=== PATIENT | female | born 1970 | race Caucasian/White ===

== ENCOUNTER 2019-08-02 14:48 | Emergency (ER) | payer OTHER ==
[2019-08-02 15:17] VITALS: BP 148/70; PULSE 110; TEMP 97.7; BMI 22.4
--- NOTE | 2019-08-02 15:17 | PDOC ---
Rapid Medical Evaluation Time Seen by Provider: 08/02/19 15:15 Medical Evaluation: 08/02/19 15:15 This patient had brief-in person evaluation in triage cc:abdominal pain HPI: patient sent to ed from doctor's office for chest xray and ct as per patient, abdominal pain, vomiting and diarrhea. PE:NAD unlabored breathing, non tender abdomen orders:chest xray and abd/pelvic ct This patient will proceed to main ed for further evaluation Discharge Disposition - Diagnosis Abdominal pain - Referrals - Patient Instructions - Post Discharge Activity
[2019-08-02 17:06] LABS: BASO % 0.3 % (0-2.0); EOS % 0.2 % (0-4.5); HEMATOCRIT 43.7 % (32.4-45.2); HEMOGLOBIN 14.6 GM/dL (10.7-15.3); LYMPH % 35.8 % (8-40); MCH 27.9 pg (25.7-33.7); MCHC 33.3 g/dl (32.0-36.0); MEAN CELL VOLUME 83.7 fl (80-96); MEAN PLT VOLUME 9.7 fl (7.5-11.1); MONO % 10.6 % (3.8-10.2); NEUT % 53.1 % (42.8-82.8); PLATELET COUNT 196 K/MM3 (134-434); RBC 5.22 M/mm3 (3.60-5.2); RDW 13.2 % (11.6-15.6); WHITE BLOOD COUNT 6.7 K/mm3 (4.0-10.0)
[2019-08-02 17:10] LABS: URINE APPEARANCE CLEAR; URINE BILIRUBIN NEGATIVE (NEGATIVE); URINE COLOR YELLOW; URINE GLUCOSE (UA) NEGATIVE (NEGATIVE); URINE KETONE NEGATIVE (NEGATIVE); URINE LEUK ESTERASE NEGATIVE (NEGATIVE); URINE NITRITE NEGATIVE (NEGATIVE); URINE PROTEIN NEGATIVE (NEGATIVE); URINE UROBILINOGEN 0.2 mg/dL (0.2-1.0)
[2019-08-02 17:32] LABS: ALBUMIN 3.2 g/dl (3.4-5.0); BILIRUBIN,TOTAL 0.4 mg/dL (0.2-1); BLOOD UREA NITROGEN 15.5 mg/dL (7-18); CREATININE 0.5 mg/dL (0.55-1.3); POTASSIUM 3.9 mmol/L (3.5-5.1); TOT PROT 6.6 g/dl (6.4-8.2)
--- NOTE | 2019-08-02 18:02 | PDOC ---
History of Present Illness - General Chief Complaint: Pain Stated Complaint: SENT BY PCP/ABD PAIN Time Seen by Provider: 08/02/19 15:15 History Source: Patient Exam Limitations: No Limitations - History of Present Illness Travel History: No Initial Comments: 08/02/19 18:14 48-year-old female sent in by Dr. Marinelli for evaluation of generalized abdominal pain along with a cough. Patient was sent to have an abdominal CT along with chest x-ray to rule out pneumonia versus colonic involvement. Patient denies fever, chills, headache, or diarrhea, change in urine pattern but states did lose approximately 10 pounds over the past 1 to 2 months. Timing/Duration: reports: intermittent Quality: reports: mild Abdominal Pain Onset Location: reports: generalized abdomen Pain Radiation: reports: no radiation Activities at Onset: reports: none Alleviating Factors: improves with: None Past History - Travel Traveled outside of the country in the last 30 days: No Close contact w/someone who was outside of country & ill: No - Past Medical History Allergies/Adverse Reactions: Allergies Allergy/AdvReac Type Severity Reaction Status Date / Time No Known Allergies Allergy Verified 08/02/19 15:18 Home Medications: Ambulatory Orders NK [No Known Home Medication] 08/02/19 COPD: No Kidney Stones: (POLYCYSTIC KIDNEY) - Surgical History Abdominal Surgery: (ECTOPIC) - Immunization History Immunization Up to Date: Yes - Psycho Social/Smoking Cessation Hx Smoking History: Current every day smoker Have you smoked in the past 12 months: Yes Information on smoking cessation initiated: Yes Hx Alcohol Use: No Drug/Substance Use Hx: No Patient Lives Alone: No Lives with/in: spouse/SO Review of Systems - Review of Systems Able to Perform ROS?: Yes Is the patient limited Faroese proficient: No Constitutional: Yes: Weakness, Unintentional Wgt. Loss HEENTM: No: Symptoms Reported Respiratory: Yes: Cough Cardiac (ROS): No: Symptoms Reported ABD/GI: Yes: Abdominal cramping : No: Symptoms Reported Musculoskeletal: No: Symptoms Reported Integumentary: No: Symptoms Reported Neurological: No: Symptoms reported *Physical Exam - Vital Signs Last Vital Signs Temp Pulse Resp BP Pulse Ox 97.7 F 110 H 18 148/70 99 08/02/19 15:12 08/02/19 15:12 08/02/19 15:12 08/02/19 15:12 08/02/19 15:12 - Physical Exam General Appearance: Yes: Nourished, Appropriately Dressed. No: Apparent Distress HEENT: negative: Pale Conjunctivae Neck: positive: Supple Respiratory/Chest: positive: Lungs Clear, Normal Breath Sounds. negative: Respiratory Distress, Accessory Muscle Use Cardiovascular: positive: Regular Rhythm, Tachycardia. negative: Murmur Gastrointestinal/Abdominal: positive: Normal Bowel Sounds, Soft. negative: Distended, Guarding, Rebound, Tenderness Extremity: positive: Normal Inspection Integumentary: positive: Normal Color, Warm, Moist Neurologic: positive: Motor Strength 5/5 (Ambulatory) ED Treatment Course - LABORATORY CBC & Chemistry Diagram: 08/02/19 16:35 08/02/19 16:35 - ADDITIONAL ORDERS Additional order review: Laboratory Results 08/02/19 08/02/19 16:35 16:35 Sodium 141 Potassium 3.9 Chloride 110 H Carbon Dioxide 23 Anion Gap 8 BUN 15.5 Creatinine 0.5 L Est GFR (CKD-EPI)AfAm 131.72 Est GFR (CKD-EPI)NonAf 113.65 Random Glucose 98 Calcium 9.0 Total Bilirubin 0.4 AST 47 H ALT 51 Alkaline Phosphatase 119 H Total Protein 6.6 Albumin 3.2 L Lipase 88 Urine Color Yellow Urine Appearance Clear Urine pH 5.0 Ur Specific [place] 1.018 Urine Protein Negative Urine Glucose (UA) Negative Urine Ketones Negative Urine Blood Negative Urine Nitrite Negative Urine Bilirubin Negative Urine Urobilinogen 0.2 Ur Leukocyte Esterase Negative 08/02/19 16:35 RBC 5.22 H MCV 83.7 MCHC 33.3 RDW 13.2 MPV 9.7 Neutrophils % 53.1 Lymphocytes % 35.8 Monocytes % 10.6 H Eosinophils % 0.2 Basophils % 0.3 Medical Decision Making - Medical Decision Making 08/02/19 17:15 chief complaint:Sent here for evaluation of cough and abdominal pain along with weight loss over the past month. Patient currently on flagyl. Patient has no other complaints at this time. Patient has history of polycystic kidneys Exam: Patient with normal physical exam except for mildly elevated heart rate of 110. Plan: Labs, urine, chest x-ray and abdominal CT ordered 08/02/19 18:24 Laboratory Tests 08/02/19 08/02/19 08/02/19 16:35 16:35 16:35 WBC 6.7 Hgb 14.6 Hct 43.7 Absolute Neuts (auto) 3.6 Neutrophils % 53.1 Monocytes % 10.6 H Eosinophils % 0.2 Basophils % 0.3 Nucleated RBC % 0 Sodium 141 Potassium 3.9 Chloride 110 H Carbon Dioxide 23 Anion Gap 8 BUN 15.5 Creatinine 0.5 L Random Glucose 98 Calcium 9.0 Total Bilirubin 0.4 AST 47 H ALT 51 Alkaline Phosphatase 119 H Total Protein 6.6 Albumin 3.2 L Lipase 88 Urine Glucose (UA) Negative Urine Ketones Negative Urine Blood Negative Urine Nitrite Negative Urine Bilirubin Negative Ur Leukocyte Esterase Negative Chest x-ray shows COPD. CT shows findings consistent with adult polycystic kidney disease including multiple renal and hepatic cysts. Otherwise normal abdominal CT. Case discussed with Dr. Vickey Marinelli and tried contacting him for update. will discharge patient home Discharge - Discharge Information Problems reviewed: Yes Clinical Impression/Diagnosis: Abdominal pain Condition: Improved Disposition: HOME - Follow up/Referral Referrals: Vickey Marinelli MD [Primary Care Provider] - Bharathi Paz MD [Staff Physician] - - Patient Discharge Instructions Patient Printed Discharge Instructions: DI for Abdominal Pain-Adult Additional Instructions: Please follow-up with Dr. marinelli and consider following up with the flipping machine operator as I have given you on your discharge - Post Discharge Activity Work/Back to School Note: Back to Work
== END 2019-08-02 18:41 | disposition home or self-care (01) ==
LOC: JER 14:48
DX: R10.9 Unspecified abdominal pain (principal); N28.1 Cyst of kidney, acquired; F17.210 Nicotine dependence, cigarettes, uncomplicated
CPT/HCPCS: 36415; 71046-TC-FY; 74176-TC; 80053; 81003; 83690; 85025; 87086; 99282-25

== ENCOUNTER 2021-02-05 13:23 | Emergency (ER) | payer OTHER ==
[2021-02-05 13:56] VITALS: TEMP 97.2; BMI 25.0
[2021-02-05] MEDS ORDERED: SODIUM CHLORIDE 0.9% 500 ML INFUS.BAG IV ONE ×2 (15:24→18:14)
[2021-02-05] MEDS ORDERED: ACETAMINOPHEN 1000 MG/100 ML VIAL (NON FORMULARY) IVPB ONE (15:24)
[2021-02-05] MEDS ORDERED: ACETAMINOPHEN INJECTION 100 ML IVPB ONE (15:56)
[2021-02-05 16:44] LABS: BASO % 0.2 % (0-2.0); HEMATOCRIT 35.4 % (32.4-45.2); LYMPH % 16.6 % (8-40); MCH 27.6 pg (25.7-33.7); MCHC 34.1 g/dl (32.0-36.0); MEAN PLT VOLUME 9.4 fl (7.5-11.1); MONO % 9.3 % (3.8-10.2); NEUT % 73.9 % (42.8-82.8); PLATELET COUNT 231 10^3/uL (134-434); RBC 4.36 M/mm3 (3.60-5.2); WHITE BLOOD COUNT 13.4 K/mm3 (4.0-10.0)
[2021-02-05 17:04] LABS: CHLORIDE 104 mmol/L (98-107); SODIUM 137 mmol/L (136-145)
[2021-02-05 17:05] LABS: ALBUMIN 3.1 g/dl (3.4-5.0); BLOOD UREA NITROGEN 15.6 mg/dL (7-18)
[2021-02-05 17:06] LABS: ANION GAP 9 MMOL/L (8-16); CO2 25 mmol/L (21-32); GLUCOSE,RANDOM 86 mg/dL (74-106); LIPASE 60 U/L (73-393)
[2021-02-05 17:09] LABS: CREATININE 0.5 mg/dL (0.55-1.3); SGOT/AST 17 U/L (15-37); SGPT/ALT 35 U/L (13-61)
[2021-02-05 17:10] LABS: BILIRUBIN,TOTAL 0.8 mg/dL (0.2-1); TOT PROT 6.5 g/dl (6.4-8.2)
[2021-02-05 17:12] LABS: ALK PHOS 212 U/L (45-117)
[2021-02-05 17:18] LABS: EPI CELLS 24 /uL (0-25.1); HYALINE CASTS 5 /uL (0-3.1); PH,URINE 6.5 (5.0-8.0); URINE APPEARANCE CLEAR; URINE BACTERIA >9,000 /uL (0-1359); URINE BILIRUBIN NEGATIVE (NEGATIVE); URINE COLOR YELLOW; URINE GLUCOSE (UA) NEGATIVE (NEGATIVE); URINE KETONE NEGATIVE (NEGATIVE); URINE LEUK ESTERASE TRACE (NEGATIVE); URINE NITRITE POSITIVE (NEGATIVE); URINE PROTEIN TRACE (NEGATIVE); URINE RBC 34 /uL (0-23.9); URINE UROBILINOGEN 0.2 mg/dL (0.2-1.0); URINE WBC 76 /uL (0-25.8)
[2021-02-05 18:48] VITALS: BP 139/95; PULSE 104
== END 2021-02-05 19:33 | disposition home or self-care (01) ==
LOC: JER 13:23
PROC: 3E0333Z Introduction of Anti-inflammatory into Peripheral Vein, Percutaneous Approach (ICD-10-PCS; principal; 2021-02-05)
DX: N39.0 Urinary tract infection, site not specified (principal)
CPT/HCPCS: 36415; 74177-TC; 80053; 81003; 83690; 84439; 84443; 84481; 84484; 84703; 85025; 87086; 87186; 93005; 93010; 99285-25; C9803; J0131; Q9967; U0003; U0005

== ENCOUNTER 2021-08-16 09:44 | Emergency (ER) | payer OTHER ==
[2021-08-16 09:49] VITALS: BP 165/78; PULSE 103; TEMP 99.2; BMI 20.6
[2021-08-16] MEDS ORDERED: ACETAMINOPHEN 1000 MG/100 ML BAG IVPB ONE (10:25)
[2021-08-16] MEDS ORDERED: SODIUM CHLORIDE 1,000 ML IV STA (10:25)
[2021-08-16] MEDS ORDERED: ONDANSETRON 4 MG/2 ML VIAL IVPUSH ONE (10:25)
[2021-08-16] MEDS ORDERED: ACETAMINOPHEN INJECTION 100 ML IVPB ONE (10:40)
[2021-08-16] MEDS ORDERED: ONDANSETRON 4 MG/2 ML VIAL ONE (10:41)
[2021-08-16 11:47] LABS: BASO % 0.1 % (0-2.0); HEMATOCRIT 34.9 % (32.4-45.2); HEMOGLOBIN 11.4 GM/dL (10.7-15.3); LYMPH % 7.8 % (8-40); MCH 26.2 pg (25.7-33.7); MCHC 32.5 g/dl (32.0-36.0); MEAN CELL VOLUME 80.4 fl (80-96); MEAN PLT VOLUME 9.9 fl (7.5-11.1); MONO % 10.6 % (3.8-10.2); NEUT % 81.5 % (42.8-82.8); PLATELET COUNT 252 10^3/uL (134-434); RBC 4.34 M/mm3 (3.60-5.2); WHITE BLOOD COUNT 12.5 K/mm3 (4.0-10.0)
[2021-08-16 12:11] LABS: CALCIUM 9.5 mg/dL (8.5-10.1)
[2021-08-16 12:12] LABS: ALBUMIN 3.2 g/dl (3.4-5.0)
[2021-08-16 12:14] LABS: CREATININE 0.4 mg/dL (0.55-1.3)
[2021-08-16 12:16] LABS: BILIRUBIN,TOTAL 0.5 mg/dL (0.2-1); TOT PROT 6.7 g/dl (6.4-8.2)
[2021-08-16 12:56] LABS: INR 1.04 (0.83-1.09)
[2021-08-16 13:49] LABS: HCG,QUALITATIVE URINE Negative
[2021-08-16 14:10] LABS: URINE APPEARANCE CLEAR; URINE BILIRUBIN NEGATIVE (NEGATIVE); URINE COLOR YELLOW; URINE GLUCOSE (UA) NEGATIVE (NEGATIVE); URINE KETONE NEGATIVE (NEGATIVE); URINE PROTEIN NEGATIVE (NEGATIVE)
[2021-08-16 14:11] LABS: EPI CELLS 2.8 /uL (0-25.1); HYALINE CASTS 0.38 /uL (0-3.1); URINE BACTERIA 3616.5 /uL (0-1359); URINE LEUK ESTERASE SMALL (NEGATIVE); URINE NITRITE NEGATIVE (NEGATIVE); URINE RBC 12 /uL (0-23.9); URINE UROBILINOGEN 0.2 mg/dL (0.2-1.0); URINE WBC 207.8 /uL (0-25.8)
== END 2021-08-16 14:20 | disposition home or self-care (01) ==
LOC: JER 09:44
PROC: 3E033GC Introduction of Other Therapeutic Substance into Peripheral Vein, Percutaneous Approach (ICD-10-PCS; principal; 2021-08-16)
DX: R10.31 Right lower quadrant pain (principal)
CPT/HCPCS: 36415; 74177-TC; 80053; 81003; 83690; 84703; 85025; 85610; 87086; 87186; 99285-25; Q9967